=== PATIENT | male | born 1930 | race African-American/Black ===

== ENCOUNTER 2016-07-17 01:53 | Emergency (ER) | payer OTHER ==
[~2016-07-17] VITALS: Ht 182.9 cm; Wt 90.0 kg
[~2016-07-17 01:53] MED LIST: ASPI-1035; HYDR-1348
[2016-07-17] MEDS ORDERED: ONDANSETRON HCL 4MG/2ML VIAL IV STA (02:47)
[2016-07-17] MEDS ORDERED: MORPHINE SULFATE 4 MG/ML CPJ (NOT FOR IM USE) IV STA (02:47)
[2016-07-17 03:17] LABS: CALCIUM 8.1 mg/dL (8.5-10.1)
[2016-07-17 03:20] LABS: BASOPHILS % 1.3 % (0.0-2.0); EOSINOPHILS % 4.2 % (0.0-5.0); HEMATOCRIT. 36.1 % (42.0-52.0); HEMOGLOBIN. 12.3 g/dL (14.0-18.0); LYMPHOCYTES % 22.1 % (20.0-50.0); MEAN CORPUSCULAR HEMOGLOBIN 31.8 pg (28.0-32.0); MEAN CORPUSCULAR VOLUME 93.4 fL (80.0-94.0); MONOCYTES % 7.5 % (2.0-8.0); NEUTROPHILS % 64.9 % (40.0-76.0); PLATELET 170 x1000/uL (130-400); RED BLOOD CELL COUNT 3.87 mill/uL (4.7-6.1); RED CELL DISTRIBUTION WIDTH 14.5 % (11.6-14.6); WHITE BLOOD COUNT 4.8 x1000/uL (4.5-11.0)
[2016-07-17 03:29] LABS: C REACTIVE PROTEIN QUANT 6.8 mg/L (0.0-3.0)
[2016-07-17] MEDS ORDERED: MORPHINE SULFATE 4 MG/ML CPJ (NOT FOR IM USE) IV ONE (05:15)
[2016-07-17 06:13] VITALS: BP 126/65
== END 2016-07-17 07:00 | disposition short-term general hospital (02) ==
LOC: ER 01:54
DX: M25.551 Pain in right hip (principal); L89.219 Pressure ulcer of right hip, unspecified stage; I25.10 Atherosclerotic heart disease of native coronary artery without angina pectoris; E11.9 Type 2 diabetes mellitus without complications; I10 Essential (primary) hypertension; Z98.890 Other specified postprocedural states; Z88.6 Allergy status to analgesic agent
CPT/HCPCS: 36415; 73502; 80048; 85025; 85651; 86140; 96374; 96375; 96376; 99285; J2270; J2405